=== PATIENT | male | born 1965 | race Caucasian/White ===

== ENCOUNTER 2021-05-25 01:13 | Day surgery (SDC) | payer BC, SELFPAY ==
[2021-05-14 13:38] VITALS: BMI 32.3
[2021-05-25 08:26] VITALS: BP 116/80; PULSE 79; RESP 16; TEMP 36.4; O2SAT 99; BMI 29.9
[2021-05-25] MEDS: LACTATED RINGERS 1,000 ML 150 ML IV CONT (08:34)
--- NOTE | 2021-05-25 08:39 | PM.HPGS ---
History of Present Illness History of Present Illness Consent: Risks, benefits, and alternatives have been discussed and questions answered. Patient agrees to proceed with procedure. Chief complaint: hx of colon polyps Narrative: Jermaine Lozano is a 56 year old male With a history of polyps PMFSH Past Medical History Medical History Overweight (BMI 25.0-29.9) Social History Social History Years smoked: 30 Smoking status: Former smoker Alcohol intake: current Drinks per week: 6 Substance use: never Substance use type: does not use Living arrangements: with family Spiritual care concerns: No Meds Home Medications and Allergies Home Medications Medication Instructions Recorded Confirmed Type meloxicam 15 mg PO DAILY 05/14/21 05/14/21 History Allergies Allergy/AdvReac Type Severity Reaction Status Date / Time No Known Allergies Allergy Unknown Verified 05/25/21 08:25 Vital Signs Vital Signs - 24 hr 05/25/21 08:26 Temperature 36.4 C L Pulse Rate 79 Respiratory Rate 16 Blood Pressure 116/80 Pulse Oximetry 99 Assessment and Plan Assessment and plan (1) Colon cancer screening: Code(s): Z12.11 - Encounter for screening for malignant neoplasm of colon Status: Acute Assessment and Plan: Colonoscopy with possible biopsy or polypectomy or cautery or injection of substances.
--- NOTE | 2021-05-25 09:00 | WPDANESEPPF ---
Anes - Initial Pre Proc Eval Procedure: Operation Date: 05/25/21 09:30 Proposed Procedures p Screening Colonoscopy - Luis Hart MD Date/Time: 05/25/21 09:00 Surgeon: Luis Hart MD Pre Op Diagnosis: hx of colon polyps Patient Data Age: 56 Gender: M Height: 1.8 m Weight: 97.3 kg Last Vital Signs Temp 97.5 F L 05/25/21 08:26 Pulse 79 05/25/21 08:26 Resp 16 05/25/21 08:26 BP 116/80 05/25/21 08:26 Pulse Ox 99 05/25/21 08:26 Allergies Allergy/AdvReac Type Severity Reaction Status Date / Time No Known Allergies Allergy Unknown Verified 05/25/21 08:25 Home Medications Medication Instructions Recorded Confirmed Type meloxicam 15 mg PO DAILY 05/14/21 05/14/21 History Patient hx anesthesia problems: none Family hx anesthesia problems: none COUNTS INCLUDE 234 BEDS AT THE [facility] Past Medical History Medical History (Updated 05/25/21 @ 08:53 by Malachi Rivera MD) Overweight (BMI 25.0-29.9) Social History Social History Years smoked: 30 Smoking status: Former smoker Alcohol intake: current Drinks per week: 6 Substance use: never Substance use type: does not use Living arrangements: with family Spiritual care concerns: No Anes - Eval Final PreProcedure Day of Procedure 05/25/21 09:00 Patient weight: overweight Heart: regular rate and rhythm Lungs: clear to auscultation Airway: Mallampati scale class II Neurological: alert and oriented Last oral intake: >/= 8 hours ASA classification: II Emergent: no Anesthetic plan: proceed Anesthesia type and monitoring: general GIVS and standard monitoring Informed Consent: The patient's anesthetic plan and its attendant risks and benefits were discussed with the patient/family/POA. Questions were solicited and answers provided to the satisfaction of the patient/family/POA.
[2021-05-25] MEDS: SIMETHICONE ORAL SUSPENSION 20 MG/0.3 ML 30 ML BOTTLE 0.6 ML IRRIGATION (09:28)
[2021-05-25 09:39] VITALS: BP 105/66; PULSE 72; RESP 15; O2SAT 94
[2021-05-25 09:49] VITALS: BP 104/73; PULSE 67; RESP 16; O2SAT 94
[2021-05-25 09:59] VITALS: BP 125/85; PULSE 66; RESP 14; O2SAT 94
== END 2021-05-25 10:09 | disposition home or self-care (01) ==
PROVIDERS: PCP Family Medicine; Visit Provider Internal Medicine Gastroenterology
PROC: 0DJD8ZZ Inspection of Lower Intestinal Tract, Via Natural or Artificial Opening Endoscopic (ICD-10-PCS; CPT 45378; principal; 2021-05-25 09:30)
DX: Z12.11 Encounter for screening for malignant neoplasm of colon (principal); K63.5 Polyp of colon; Z87.891 Personal history of nicotine dependence
CPT/HCPCS: 45380; 88305; J2704; J7120

== ENCOUNTER 2022-07-19 08:52 | Outpatient (RCR) | payer OTHER, SELFPAY ==
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
== END 2022-08-04 10:07 | disposition home or self-care (01) ==
LOC: CHSPT 08:52
DX: M54.2 Cervicalgia (principal); M54.12 Radiculopathy, cervical region
CPT/HCPCS: 97012; 97014; 97110; 97161; G0283